=== PATIENT | female | born 1975 | race African-American/Black ===

== ENCOUNTER 2017-03-01 18:46 | Inpatient (IN) ==
[2017-03-01 20:48] LABS: Basophils % 0.5 % (0.0-0.8); Eosinophils # 0.1 10*3/uL (0.0-0.87); Eosinophils % 1.7 % (0.00-10.9); Hematocrit 39.6 VOL% (35.7-47.0); Hemoglobin 12.4 GM/DL (12.0-16.0); Immature Granulocytes % 0.2 %; Immature Granulocytes Absolute 0.01 #; Lymphocytes # 3.2 10*3/uL (1.4-4.0); Lymphocytes % 49.5 % (21.3-54.2); Mean Corpuscular HGB Conc 31.3 GM/DL (32-36); Mean Corpuscular Hemoglobin 25 PG (27-34); Mean Corpuscular Volume 78.3 FL (87-102); Mean Platelet Volume 13.2 FL (9.6-12.0); Monocytes # 0.5 10*3/uL (0.11-0.8); Monocytes % 7.5 % (1.7-12.7); Neutrophils # 2.6 10*3/uL (1.4-7.4); Neutrophils % 40.6 % (38.7-73.9); Platelet Count 248 T/CUMM (130-400); Red Blood Count 5.06 MC/CUMM (3.8-5.5); Red Cell Distribution Width 16.7 % (9.3-17.3); White Blood Count 6.4 T/CUMM (4-12)
[2017-03-01 21:09] LABS: Apearance,Urine CLOUDY (Clear); Bacteria,Urine Occasional /HPF (Few); Bilirubin,Urine Negative (Negative); Blood, Urine Negative (Negative); Glucose,Urine (UA) Negative (Negative); Ketones,Urine Negative (Negative); Mucus,Urine Occasional /LPF (Occasional); Nitrite,Urine Negative (Negative); Protein,Urine Negative; RBC,Urine 2 /HPF (0-4); Squamous Epithelial Cell,Urine Few /HPF (0-10); Urine Color Yellow (Yellow); Urine Specific Gravity 1.008 (1.001-1.035); Urine Urobilinogen < 2.0 EU/DL (0.2-1.0); WBC,Urine 10 /HPF (0-6)
[2017-03-01 21:10] LABS: Albumin 3.9 G/DL (3.4-5.0); Bilirubin,Total 0.7 MG/DL (0.2-1.0); Free T4 (Free Thyroxine) 0.78 NG/DL (0.76-1.46); Osmolality,Calculated 276.5 MOS/KG (273-304); Potassium 3.7 MMOL/L (3.5-5.1); Thyroid Stimulating Hormone 2.38 uIU/ml (0.358-3.74); Total Protein 7.4 G/DL (6.4-8.3)
[2017-03-01 21:53] LABS: Troponin I Only < 0.015 NG/ML (0.00-0.045)
[2017-03-02] MEDS ORDERED: MORPHINE 2 MG/1 ML SYRINGE IV PRN (01:24)
[2017-03-02] MEDS ORDERED: ONDANSETRON 4 MG/2 ML VIAL IV PRN (01:24)
[2017-03-02] MEDS ORDERED: ALBUTEROL 2.5 MG/3 ML NEB RESP TX PRN (01:24)
[2017-03-02] MEDS: SULFAMETHOX/TRIMETHOPRIM 800-160 MG TABLET PO SCH ×3 (02:51→21:28)
[2017-03-02 06:25] LABS: Risk Ratio 4.67; VLDL CHOLESTEROL 22.8 MG/DL
[2017-03-02] MEDS: DOCUSATE SODIUM 100 MG CAPSULE PO SCH ×2 (09:24→21:29)
[2017-03-02] MEDS: PANTOPRAZOLE 40 MG TABLET PO SCH (09:24)
[2017-03-02] MEDS: methylPREDNISolone SOD SUC 125 MG/2 ML VIAL IV SCH ×3 (09:25→23:44)
[2017-03-02] MEDS: ENOXAPARIN 40 MG/0.4 ML SYRINGE SUBCUT SCH (09:25)
[2017-03-02] MEDS ORDERED: ASPIRIN CHEW 81 MG TABLET PO ONE (11:07)
[2017-03-02] MEDS: GABAPENTIN 100 MG CAPSULE PO SCH ×3 (12:09→21:29)
[2017-03-02] MEDS: VERAPAMIL 80 MG TABLET PO SCH ×3 (12:10→21:29)
[2017-03-02] MEDS: traMADol 50 MG TABLET PO SCH ×2 (12:10→21:29)
[2017-03-02] MEDS: ACETAMINOPHEN 325 MG TABLET PO SCH ×2 (12:10→21:29)
[2017-03-02] MEDS: MONTELUKAST 10 MG TABLET PO SCH (21:29)
[2017-03-03] MEDS: methylPREDNISolone SOD SUC 125 MG/2 ML VIAL IV SCH ×4 (03:17→21:09)
[2017-03-03] MEDS: ACETAMINOPHEN 325 MG TABLET PO SCH ×2 (09:47→21:08)
[2017-03-03] MEDS: traMADol 50 MG TABLET PO SCH ×2 (09:47→21:09)
[2017-03-03] MEDS: SULFAMETHOX/TRIMETHOPRIM 800-160 MG TABLET PO SCH ×2 (09:48→21:08)
[2017-03-03] MEDS: PANTOPRAZOLE 40 MG TABLET PO SCH (09:48)
[2017-03-03] MEDS: GABAPENTIN 100 MG CAPSULE PO SCH ×3 (09:48→21:08)
[2017-03-03] MEDS: ENOXAPARIN 40 MG/0.4 ML SYRINGE SUBCUT SCH (09:48)
[2017-03-03] MEDS: VERAPAMIL 80 MG TABLET PO SCH ×3 (09:48→21:08)
[2017-03-03] MEDS: ASPIRIN CHEW 81 MG TABLET PO SCH (09:49)
[2017-03-03] MEDS: DOCUSATE SODIUM 100 MG CAPSULE PO SCH ×2 (09:49→22:12)
[2017-03-03] MEDS: LEVALBUTEROL 0.63 MG/3 ML NEB RESP TX SCH ×2 (14:27→19:56)
[2017-03-03] MEDS: MONTELUKAST 10 MG TABLET PO SCH (21:08)
[2017-03-04] MEDS: LEVALBUTEROL 0.63 MG/3 ML NEB RESP TX SCH ×4 (00:06→11:35)
[2017-03-04] MEDS: methylPREDNISolone SOD SUC 125 MG/2 ML VIAL IV SCH ×4 (02:45→14:41)
[2017-03-04] MEDS: PANTOPRAZOLE 40 MG TABLET PO SCH (08:26)
[2017-03-04] MEDS: ENOXAPARIN 40 MG/0.4 ML SYRINGE SUBCUT SCH (08:26)
[2017-03-04] MEDS: GABAPENTIN 100 MG CAPSULE PO SCH ×2 (08:26→14:40)
[2017-03-04] MEDS: DOCUSATE SODIUM 100 MG CAPSULE PO SCH (08:26)
[2017-03-04] MEDS: VERAPAMIL 80 MG TABLET PO SCH ×2 (08:26→14:40)
[2017-03-04] MEDS: ASPIRIN CHEW 81 MG TABLET PO SCH (08:26)
[2017-03-04] MEDS: SULFAMETHOX/TRIMETHOPRIM 800-160 MG TABLET PO SCH (08:26)
[2017-03-04] MEDS: ACETAMINOPHEN 325 MG TABLET PO SCH (08:58)
[2017-03-04] MEDS: traMADol 50 MG TABLET PO SCH (08:58)
[2017-03-04] MEDS ORDERED: BUDESONIDE/FORMOTEROL 160-4.5 INHALER 6 GM INH SCH (10:00)
[2017-03-04 11:04] VITALS: BP 129/69
== END 2017-03-04 16:16 | disposition home or self-care (01) | DRG 202 ==
LOC: N.ED 18:46 → N.EDINP 03-02 00:38 → SUATTDRO 03-02 00:38 → N.5E 03-02 00:55
PROVIDERS: ADMIT Internal Medicine Infectious Disease; ATTEND Internal Medicine